=== PATIENT | female | born 1975 | race African-American/Black ===

== ENCOUNTER 2017-01-07 16:57 | Inpatient (IN) | payer OTHER ==
[~2017-01-07] VITALS: Ht 157.5 cm; Wt 68.9 kg
[~2017-01-07 16:57] MED LIST: ALBUTEROL SULF8.5 GM IH; ASMANEX TW200 MICRO1 IH; ASPIR 8181 M1 PO; ASPIRIN325 MG PO; ATARAX,VISTARIL25 MG PO; AUGMENTIN875 MG PO; CARDIZEM30 MG PO; CIPROFLOXACIN500 M1 PO; ECOTRIN325 MG PO; FERROUS SULFAT325 MG PO; FLAGYL500 MG PO; FLEXERIL10 MG PO; FLEXERIL5 MG PO; Feosol PO; GABAPENTIN300 MG PO; GEODON40 MG PO; IRON325 M1 PO; IRON325 MG PO; LISINOPRIL-HCT1 EAC3 PO; MECLIZINE HCL12.5 M1 PO; MIRALAX17 GM PO; MOTRIN600 MG PO; MOTRIN800 MG PO; NAPROSYN500 MG PO; NAPROXEN500 M1 PO; NOHOMEMEDS; NORCO 7.5/321 TABLET PO; PAROXETINE HCL10 MG PO; PAXIL10 MG PO; PERCOCET 5/31 TABLET PO; PREDNISONE50 MG PO; PROVENTIL,2.5 MG/3 M IH; ULTRAM50 MG PO; VALIUM5 MG PO; VENTOLIN HFA18 GM IH; ZITHROMAX250 MG PO
[2017-01-07 19:15] LABS: EOSINOPHIL (%) 0.4 % (0-5); HEMATOCRIT 37.7 % (36.0-46.0); IMMATURE GRANULOCYTE (%) 0.5 % (0.0-0.7); IMMATURE GRANULOCYTE COUNT 0.1 K/uL; LYMPHOCYTE COUNT 1.8 K/uL (1.0-2.8); MCH 33.5 PG (29.0-34.0); MCV 95.7 FL (83-99); MEAN PLAT.VOLUME 9.6 uM^3 (9.5-12.4); MONOCYTE (%) 4.4 % (3-12); MONOCYTE COUNT 0.5 K/uL (0-0.8); NEUTROPHIL (%) 78.9 % (45-76); PLATELET COUNT 336 K/uL (156-360); RBC DIS.WIDTH-CV 12.7 % (11.8-14.6); RBC DIS.WIDTH-SD 44.8 % (39-53); RED BLOOD COUNT 3.94 M/uL (3.80-5.20); WHITE BLOOD COUNT 11.4 K/uL (4.1-10.2)
[2017-01-07 19:44] LABS: CHLORIDE 106 mEq/L (99-109); POTASSIUM 3.6 mEq/L (3.7-5.4); SODIUM 140 mEq/L (136-147)
[2017-01-07 19:46] LABS: GLUCOSE 129 mg/dL (70-99)
[2017-01-07 19:47] LABS: ANION GAP 10 MEQ/L (2-14)
[2017-01-07 19:48] LABS: TOTAL BILIRUBIN 0.6 mg/dL (0.0-1.0)
[2017-01-07 19:49] LABS: SERUM ETHYL ALCOHOL < 10 mg/dL
[2017-01-07 19:50] LABS: ALKALINE PHOSPHATASE 58 IU/L (3-129); GFR ESTIMATE (CALCULATED) > 59 mL/min/
[2017-01-07 19:51] LABS: UREA NITROGEN (BUN) 19 mg/dL (9-23)
[2017-01-07 19:59] LABS: QUANTITATIVE HCG < 4.0 MIU/ML
[2017-01-07] MEDS ORDERED: ZESTORETIC 20-1 EAC2 PO (20:41)
[2017-01-07] MEDS ORDERED: GEODON60 MG PO (20:42)
[2017-01-07] MEDS ORDERED: LAMICTAL200 MG PO (20:44)
[2017-01-07] MEDS ORDERED: FLONASE16 G1 BOTH NARES (20:44)
[2017-01-07 21:26] VITALS: BP 133/93
[2017-01-07 21:36] VITALS: BP 133/93
[2017-01-08 07:54] VITALS: BP 95/54
[2017-01-08 15:15] VITALS: BP 103/59
[2017-01-09 07:35] VITALS: BP 119/78
[2017-01-09 15:10] VITALS: BP 105/64
[2017-01-10 09:00] VITALS: BP 132/66
[2017-01-10] MEDS ORDERED: OLANZAPINE5 MG PO (09:22)
== END 2017-01-10 11:03 | disposition home or self-care (01) | DRG 885 ==
LOC: EME → EDBD 16:57 → EME 16:57 → EDOF 19:58 → 1WEST 19:58
PROVIDERS: Emergency Medicine
DX: F29 Unspecified psychosis not due to a substance or known physiological condition (principal); F43.20 Adjustment disorder, unspecified; F14.10 Cocaine abuse, uncomplicated; F16.19 Hallucinogen abuse with unspecified hallucinogen-induced disorder
CPT/HCPCS: 80053; 84702; 85025; 90837; 99202; 99281; 99285; G0480

== ENCOUNTER 2017-02-03 23:20 | Emergency (ER) | payer OTHER ==
[~2017-02-03] VITALS: Ht 157.5 cm; Wt 73.6 kg
[~2017-02-03 23:20] MED LIST changes: +FLONASE16 G1 BOTH NARES; +GEODON60 MG PO; +LAMICTAL200 MG PO; +OLANZAPINE5 MG PO; +ZESTORETIC 20-1 EAC2 PO
[2017-02-04] MEDS ORDERED: FLEXERIL10 MG PO (00:18)
[2017-02-04 00:29] VITALS: BP 118/88
== END 2017-02-04 00:30 | disposition home or self-care (01) ==
LOC: EME 23:20
DX: M54.2 Cervicalgia (principal); M62.838 Other muscle spasm; M25.561 Pain in right knee; V43.63XA Car passenger injured in collision with pick-up truck in traffic accident, initial encounter; F17.200 Nicotine dependence, unspecified, uncomplicated; Z79.82 Long term (current) use of aspirin
CPT/HCPCS: 99281; 99283

== ENCOUNTER 2017-09-23 00:34 | Observation (INO) | payer OTHER ==
[~2017-09-23] VITALS: Ht 157.5 cm; Wt 79.2 kg
[2017-09-23 01:45] LABS: BASOPHIL (%) 0.5 % (0-1); BASOPHIL COUNT 0.1 K/uL (0-0.1); EOSINOPHIL (%) 0.4 % (0-5); EOSINOPHIL COUNT 0.1 K/uL (0-0.3); HEMATOCRIT 41.4 % (36.0-46.0); HEMOGLOBIN 14.3 G/DL (11.9-15.5); IMMATURE GRANULOCYTE (%) 0.5 % (0.0-0.7); LYMPHOCYTE (%) 20.8 % (15-42); LYMPHOCYTE COUNT 3.3 K/uL (1.0-2.8); MCH 33.1 PG (29.0-34.0); MCHC 34.5 G/DL (30.0-36.0); MCV 95.8 FL (83-99); MONOCYTE (%) 4.5 % (3-12); MONOCYTE COUNT 0.7 K/uL (0-0.8); NEUTROPHIL (%) 73.3 % (45-76); NEUTROPHIL COUNT 11.6 K/uL (1.8-6.4); PLATELET COUNT 352 K/uL (156-360); RBC DIS.WIDTH-CV 12.7 % (11.8-14.6); RBC DIS.WIDTH-SD 45.4 % (39-53); RED BLOOD COUNT 4.32 M/uL (3.80-5.20); WHITE BLOOD COUNT 15.8 K/uL (4.1-10.2)
[2017-09-23 01:53] LABS: PTT 25.8 SEC (25-37)
[2017-09-23 01:54] LABS: CHLORIDE 104 mEq/L (99-109); POTASSIUM 3.2 mEq/L (3.7-5.4); SODIUM 138 mEq/L (136-147)
[2017-09-23 01:56] LABS: GLUCOSE 121 mg/dL (70-99)
[2017-09-23 01:59] LABS: CREATININE 0.7 mg/dL (0.6-1.3); GFR ESTIMATE (CALCULATED) > 59 mL/min/
[2017-09-23 02:00] LABS: UREA NITROGEN (BUN) 15 mg/dL (9-23)
[2017-09-23 05:46] VITALS: BP 109/56
[2017-09-23 08:10] VITALS: BP 120/68
[2017-09-23 11:18] LABS: HEMATOCRIT 34.4 % (36.0-46.0); MCHC 34.9 G/DL (30.0-36.0); MCV 94.5 FL (83-99); PLATELET COUNT 274 K/uL (156-360); RBC DIS.WIDTH-CV 12.8 % (11.8-14.6); RBC DIS.WIDTH-SD 44.4 % (39-53); RED BLOOD COUNT 3.64 M/uL (3.80-5.20); WHITE BLOOD COUNT 13.9 K/uL (4.1-10.2)
[2017-09-23 11:37] LABS: ALBUMIN 3.4 G/DL (3.2-4.8); ALKALINE PHOSPHATASE 53 IU/L (3-129); ALT (GPT) 8 IU/L (3-49); AST (GOT) 17 IU/L (2-34); CHLORIDE 110 MEQ/L (99-109); CREATININE 0.6 MG/DL (0.6-1.3); GFR ESTIMATE (CALCULATED) > 59 mL/min/; MAGNESIUM 1.6 mg/dl (1.3-2.7); PHOSPHORUS 2.7 mg/dL (2.5-4.9); POTASSIUM 3.7 MEQ/L (3.7-5.4); SODIUM 141 MEQ/L (136-147); TOTAL BILIRUBIN 0.8 MG/DL (0.0-1.0); TOTAL PROTEIN 5.4 G/DL (6.4-8.3); UREA NITROGEN (BUN) 11 mg/dL (9-23)
[2017-09-23 11:41] LABS: GLUCOSE 90 mg/dL (70-99)
[2017-09-23 11:44] VITALS: BP 123/72
[2017-09-23 11:55] LABS: CREATINE KINASE 229 IU/L (1-294); TOTAL CK 229 IU/L (1-294)
[2017-09-23 12:50] LABS: CK-MB 3.1 ng/mL (0.0-4.9); CKMB RELATIVE INDEX 1.4 (0.0-3.9)
[2017-09-23 14:23] LABS: APPEARANCE CLEAR ((CLEAR)); BILIRUBIN NEGATIVE; BLOOD SMALL; COLOR AMBER ((YELLOW)); GLUCOSE (STRIP) NEGATIVE; KETONES NEGATIVE; LEUKOCYTES NEGATIVE; NITRITE NEGATIVE; PROTEIN (STRIP) NEGATIVE; SPECIFIC GRAVITY 1.006 (1.000-1.030); UROBILINOGEN 0.2 MG/DL (0.2-1.0)
[2017-09-23 14:37] LABS: BACTERIA RARE /HPF; EPITHELIAL CELLS RARE /HPF; MUCUS TRACE /LPF; RED BLOOD CELLS 0-5 /HPF (0-5); UCUL ADDED? NO; WHITE BLOOD CELLS 0-5 /HPF (0-5)
[2017-09-23 15:10] VITALS: BP 126/69
[2017-09-23 15:12] LABS: BENZODIAZEPINES, URINE SCREEN Negative (200 ng/mL)
[2017-09-23 19:20] VITALS: BP 123/60
[2017-09-23 23:16] VITALS: BP 130/66
[2017-09-24 03:30] VITALS: BP 129/76
[2017-09-24 08:36] VITALS: BP 129/67
[2017-09-24 11:29] VITALS: BP 123/58
[2017-09-24 16:28] VITALS: BP 124/71
[2017-09-24 19:36] VITALS: BP 121/78
[2017-09-24 23:38] VITALS: BP 118/56
[2017-09-25 03:26] VITALS: BP 126/64
[2017-09-25 08:17] VITALS: BP 145/75
[2017-09-25] MEDS ORDERED: SILVADENE20 GM TP (10:30)
[2017-09-25 12:00] VITALS: BP 122/72
[2017-09-25 15:44] VITALS: BP 148/70
[2017-09-25 19:25] VITALS: BP 132/82
[2017-09-25 23:20] VITALS: BP 139/75
[2017-09-26 07:45] VITALS: BP 107/64
[2017-09-26] MEDS ORDERED: NICODERM CQ1 EAC1 TD (08:52)
== END 2017-09-26 14:21 | disposition home or self-care (01) ==
LOC: EME 00:34 → EDOF 03:51 → 3EAST 03:51 → ENRESERV 04:00 → 3EAST 05:15
PROVIDERS: Emergency Medicine; Hospitalist
DX: T68.XXXA Hypothermia, initial encounter (principal); T33.822A Superficial frostbite of left foot, initial encounter; T33.821A Superficial frostbite of right foot, initial encounter; R74.0 Nonspecific elevation of levels of transaminase and lactic acid dehydrogenase [LDH]; X31.XXXA Exposure to excessive natural cold, initial encounter; F11.10 Opioid abuse, uncomplicated; F15.10 Other stimulant abuse, uncomplicated; E87.6 Hypokalemia; D72.829 Elevated white blood cell count, unspecified; J45.909 Unspecified asthma, uncomplicated; Z86.73 Personal history of transient ischemic attack (TIA), and cerebral infarction without residual deficits; D64.9 Anemia, unspecified; Z82.49 Family history of ischemic heart disease and other diseases of the circulatory system; Z83.3 Family history of diabetes mellitus; Z79.82 Long term (current) use of aspirin; Z88.0 Allergy status to penicillin; E78.5 Hyperlipidemia, unspecified; F17.210 Nicotine dependence, cigarettes, uncomplicated
CPT/HCPCS: 70450; 71046; 80048; 80053; 80306 90; 81003; 82550; 82553; 83605; 83735; 84100; 85025; 85027; 85610; 85730; 86850; 86900; 86901; 87040; 97530 GO; 99281; 99285; G0378; J1630; J2270; J7030